=== PATIENT | female | born 1995 ===

== ENCOUNTER → 2021-03-04 | Outpatient (REF) ==
--- NOTE | 2021-03-05 04:42 | REPPI ---
INDICATION: DISABILITY DIAGNOSIS DETERMINATION COMPARISON: None. TECHNIQUE: AP, lateral, sunrise views of the right and left knee. FINDINGS: Osseous structures, joint spaces, and surrounding soft tissues are age-appropriate and normal bilaterally. No evidence for acute injury or arthritic changes. No obvious congenital abnormality. IMPRESSION: Normal bilateral knee radiograph series <Electronically signed by Servando Pate > 03/05/21 0432
--- NOTE | 2021-03-05 04:58 | REPPI ---
INDICATION: DISABILITY DIAGNOSIS DETERMINATION Nontraumatic hip pain. COMPARISON: None. TECHNIQUE: Frontal view of the pelvis with neutral and frog lateral views of the right and left hip. FINDINGS: Osseous structures and joint spaces are intact and normal. Hip joints appear symmetric on frontal pelvic radiograph. No acute fracture dislocation. No evidence for healed injury. No significant degenerative or congenital abnormalities are appreciated. Surrounding soft tissues are unremarkable. IMPRESSION: Normal pelvis and bilateral hip series. <Electronically signed by Servando Pate > 03/05/21 1821
--- NOTE | 2021-03-05 04:59 | REPPI ---
INDICATION: DISABILITY DIAGNOSIS DETERMINATION COMPARISON: None. TECHNIQUE: AP, lateral, coned-down views of the lumbar spine. FINDINGS: Three views of the lumbosacral spine demonstrate satisfactory alignment and lordosis without acute fracture / compression injury or subluxation. IMPRESSION: Normal lumbosacral spine radiograph series <Electronically signed by Servando Pate > 03/05/21 5630
== END ==
LOC: M PLAIMG 11:15
PROVIDERS: ATTEND Internal Medicine
DX: Z00.00 Encounter for general adult medical examination without abnormal findings (principal)